=== PATIENT | male | born 1940 | race Native Hawaiian/Other Pacific Islander ===

== ENCOUNTER → 2016-08-09 | Outpatient (CLI) | payer MEDICARE | LOC: GMAL 15:04 | PROVIDERS: ATTEND Family Medicine | DX: R53.81 Other malaise (principal) ==

== ENCOUNTER → 2017-01-04 | Outpatient (CLI) | payer MEDICARE ==
--- NOTE | 2017-01-04 10:11 | US ---
EXAM DESCRIPTION: Aorta CLINICAL HISTORY: 76 years Male, AAA COMPARISON: None. FINDINGS: Aortic sonography demonstrates proximal aorta to be 2.0 cm in diameter with a transverse measurement is much is 3 cm. The mid abdominal aorta measures 3.3 cm in AP diameter and 4.1 cm in transverse diameter. The distal abdominal aorta tapers to 3.4 x 3.7 cm in diameter. Each iliac artery is 12 mm in diameter. IMPRESSION: Infrarenal aortic aneurysm with a maximal transverse diameter in the mid aorta 4.1 cm. 12 month sonographic follow-up for reevaluation and comparison to current measurements is recommended. Electronically signed by: Jhonny Miles MD 01/04/2017 10:10 AM CDT
== END | disposition home or self-care (01) ==
LOC: US 08:24
PROVIDERS: ATTEND Family Medicine
DX: I71.4 Abdominal aortic aneurysm, without rupture (principal)

== ENCOUNTER → 2017-01-28 | Outpatient (CLI) | payer MEDICARE | LOC: GMAL 11:39 | PROVIDERS: ATTEND Family Medicine | DX: D51.3 Other dietary vitamin B12 deficiency anemia (principal); R53.81 Other malaise; E55.9 Vitamin D deficiency, unspecified; Z12.5 Encounter for screening for malignant neoplasm of prostate; Z79.899 Other long term (current) drug therapy | CPT/HCPCS: 82306; 82607; 84439; 84443; G0103 ==

== ENCOUNTER → 2017-05-05 | Outpatient (CLI) | payer MEDICARE | END | disposition home or self-care (01) | LOC: GMAL 10:40 | PROVIDERS: ATTEND Family Medicine | DX: D51.3 Other dietary vitamin B12 deficiency anemia (principal); E55.9 Vitamin D deficiency, unspecified ==

== ENCOUNTER → 2017-05-10 | Outpatient (CLI) | payer MEDICARE ==
--- NOTE | 2017-05-10 18:30 | MRI ---
EXAM DESCRIPTION: Brain w/oContrast CLINICAL HISTORY: 76 years, Male, TRANSIENT CEREBRAL ISCHEMIC ATTACK COMPARISON: July 13, 2016 FINDINGS: Standard triplanar sequences. Diffusion weighted sequence does not show acute infarct. Gradient sequence does not show hemorrhage. Stable appearance of ventricles and sulci. Likely ischemic changes periventricular white matter. Old infarct and encephalomalacia in the left frontal region ,Stable. Left internal carotid flow void again not seen in the siphon region. Ethmoid sinus mucosal thickening. IMPRESSION: No acute infarct hemorrhage or mass. Study is very similar to June 2016. Atrophy and microischemic changes. Old infarct left frontal region mid convexity again noted. Flow-void again noted to be absent in the left internal carotid artery siphon. Mild ethmoid sinus mucosal thickening. Electronically signed by: Ney Cedeño MD 05/10/2017 6:29 PM CDT
--- NOTE | 2017-05-11 13:17 | US ---
EXAM DESCRIPTION: Carotid Duplex CLINICAL HISTORY: DIZZINESS AND GIDDINESS COMPARISON: July 13, 2016 and May 10, 2017 TECHNIQUE: Carotid Doppler ultrasound FINDINGS: Carotid Doppler demonstrates an occluded left ICA which is in keeping with the results of the brain MRI from 2015 and the more recent one from May 10. Intimal thickening and areas of scattered mixed plaque are also present on the right. Analysis of duplex waveforms and flow velocities indicates no Doppler finding of hemodynamically significant stenosis. Visual measurement of stenosis in the right mid CCA is 47% and the right proximal ICA 26%. Vertebrals are patent with antegrade flow. IMPRESSION: 1. Occluded left ICA 2. Atherosclerosis on the right but no hemodynamically significant stenosis. Electronically signed by: Broderick Quezada MD 05/11/2017 1:16 PM CDT
== END | disposition home or self-care (01) ==
LOC: MRI 15:49
PROVIDERS: ATTEND Family Medicine
DX: G45.9 Transient cerebral ischemic attack, unspecified (principal); R42 Dizziness and giddiness

== ENCOUNTER 2017-05-11 12:38 | Observation (INO) | payer MEDICARE ==
--- NOTE | 2017-05-11 12:51 | ED.PDOC ---
History of Present Illness - General Chief Complaint: Neuro Symptoms/Deficits Stated Complaint: confusion,speech difficulty Time Seen by Provider: 05/11/17 12:48 Source: family - Exam Limitations: no limitations - History of Present Illness Initial Comments: Earlene Dave 76 y/o male brought by with slurred speech lasting for about 15 minutes today while he was in his yard noted it no weakness but had also 2 episodes of dysarthria and 3 days ago was driving had gotten aphasic could not tell what is going on with speech difficulty lasting for about an hour but able to regain back his speech and memory.Went to see his md yesterday and outpatient MRI-brain w/o contrast-did not show acute infarct but with old infarct left frontal region. Also had total occlusion of left ICA on Carotid Doppler done yesterday vertebral artery patent. Timing/Duration: other - see hpi Severity: moderate Episode Description: see hpi Improving Factors: nothing Worsening Factors: nothing Associated Symptoms: other - see hpi Allergies/Adverse Reactions: Allergies Calcium Channel Blockers Allergy (Verified 05/11/17 12:57) Clonidine Allergy (Verified 05/11/17 12:57) Home Medications: Ambulatory Orders Aspirin [(None)] 325 mg PO QD 05/11/17 Carvedilol 6.25 mg PO BID 05/11/17 Escitalopram [Lexapro] 10 mg PO DAILY 05/11/17 Glipizide 5 mg PO BID 05/11/17 Hydrochlorothiazide 12.5 mg PO DAILY 05/11/17 Insulin Detemir [Levemir] 12 units SUBCU DAILY 05/11/17 Losartan Potassium 100 mg PO DAILY 05/11/17 Melatonin 3 mg PO BEDTIME PRN 05/11/17 Montelukast [Singulair] 10 mg PO BEDTIME 05/11/17 Terazosin HCl 2 mg PO BEDTIME 05/11/17 Review of Systems - Review of Systems Constitutional: States: no symptoms reported EENTM: States: no symptoms reported Respiratory: States: no symptoms reported Cardiology: States: no symptoms reported Gastrointestinal/Abdominal: States: no symptoms reported Genitourinary: States: no symptoms reported Musculoskeletal: States: no symptoms reported Skin: States: no symptoms reported Neurological: States: see HPI Endocrine: States: no symptoms reported Past Medical History (General) - Patient Medical History Hx Hypertension: Yes Hx Diabetes: Yes Hx Other - free text: infrarenal aortic aneurysm-4.1 cm dm. Surgical History: coronary bypass surgery, other - aortic valve replacement( pig valve),wrist right,nose,cardiac cath - Social History Hx Tobacco Use: Yes - quit 6 years ago - Activities of Daily Living Patient Lives Alone: No - ;retired previous job [employer] Grooming Ability: Independent Eating (Feeding) Ability: Independent Toileting Ability: Independent Family Medical History - Family History Father Family History: Unknown Living Status: Hx Family Hypertension: Yes - mom/brother Hx Cardiac Disease: Yes - mom/ brother Hx Family Diabetes: Yes - mom/brother Progress - Progress Progress: 05/11/17 14:00 Vital Signs - 8 hr 05/11/17 12:48 Temperature 97.5 F L Pulse Rate [ 67 Left Brachial] Respiratory 20 Rate Blood Pressure 134/69 [Left Arm] O2 Sat by Pulse 96 Oximetry Laboratory Tests 05/11/17 13:15 WBC 6.9 RBC 3.97 L Hgb 13.2 L Hct 39.6 L MCV 99.7 H MCH 33.2 H MCHC 33.5 RDW 13.6 Plt Count 170 MPV 8.2 Absolute Neuts (auto) 4.70 Absolute Lymphs (auto) 1.00 Absolute Monos (auto) 1.00 H Absolute Eos (auto) 0.20 Absolute Basos (auto) 0.10 Neutrophils % 67.2 Lymphocytes % 14.7 L Monocytes % 13.8 H Eosinophils % 3.0 Basophils % 1.3 PT 11.5 INR 1.020 PTT (SP) 28.0 Sodium 136 Potassium 4.3 Chloride 103 Carbon Dioxide 24 Anion Gap 13.3 BUN 52 H Creatinine 2.72 H BUN/Creatinine Ratio 19.1 Random Glucose 134 H Serum Osmolality 288.0 Calcium 9.2 Magnesium 2.3 Total Bilirubin 1.1 H Direct Bilirubin 0.2 Indirect Bilirubin 0.9 H AST 18 ALT 16 Alkaline Phosphatase 35 L Creatine Kinase 161 CK-MB (CK-2) 2.8 Troponin I 0.07 H* Serum Total Protein 6.6 Albumin 4.0 05/11/17 14:22 BUN-31;CREATININE-1.80(05/05/2017) - EKG/XRAY/CT EKG: Ty, Sinus, nonspecific ST T wave Chg Comments: heart rate-57 Stroke Information - Onset of Symptoms Stroke Onset of Symptoms Date: 05/09/17 - Contraindications Antithrombotic Contraindication: Treatment not indicated Departure - Departure Clinical Impression: TIA involving left internal carotid artery, Diabetes 1.5, managed as type 2 Acute kidney failure, unspecified Qualifiers: Acute renal failure type: unspecified Qualified Code(s): N17.9 - Acute kidney failure, unspecified Time of Disposition: 17:57 Disposition: Admit Patient Departure Forms: Patient Portal Self Enrollment Referrals: Marky Cain III, MD [Primary Care Provider] - 1-2 Weeks Home Medications: Ambulatory Orders Aspirin [(None)] 325 mg PO QD 05/11/17 Carvedilol 6.25 mg PO BID 05/11/17 Escitalopram [Lexapro] 10 mg PO DAILY 05/11/17 Glipizide 5 mg PO BID 05/11/17 Hydrochlorothiazide 12.5 mg PO DAILY 05/11/17 Insulin Detemir [Levemir] 12 units SUBCU DAILY 05/11/17 Losartan Potassium 100 mg PO DAILY 05/11/17 Melatonin 3 mg PO BEDTIME PRN 05/11/17 Montelukast [Singulair] 10 mg PO BEDTIME 05/11/17 Terazosin HCl 2 mg PO BEDTIME 05/11/17 Decision To Admit - Decistion To Admit Decision to Admit Reason: Admit from ER Decision to Admit Date: 05/11/17 Decision to Admit Time: 17:58 - D/W Anastasiya Langford-MARISSA/Hospitalist
[2017-05-11] MEDS ORDERED: CLOPIDOGREL 75 MG TAB PO ONE (12:54)
[2017-05-11] MEDS ORDERED: SODIUM CHLORIDE 0.9% 1000ML 1,000 ML IVS ONE (13:18)
--- NOTE | 2017-05-11 13:23 | RAD ---
EXAM DESCRIPTION: Chest,1 View CLINICAL HISTORY: 76 years Male, ams COMPARISON: None. TECHNIQUE: AP portable chest. FINDINGS: Lungs are clear. No consolidation. Heart normal size. IMPRESSION: Normal. Electronically signed by: Broderick Quezada MD 05/11/2017 1:22 PM CDT
--- NOTE | 2017-05-11 16:07 | US ---
EXAM DESCRIPTION: Renal CLINICAL HISTORY: 76 years, Male, PEMA COMPARISON: None. FINDINGS: The right kidney measures 10.3 cm in length. There is no right-sided hydronephrosis or obstructing nephrolithiasis. There is no right renal cortical thinning or perinephric fluid. The left kidney measures 12.2cm in length. There is a 4 mm nonobstructing mid left renal calculus. No left-sided hydronephrosis. There is no left renal cortical thinning or perinephric fluid. The bladder is not visualized. The abdominal aorta and IVC are not well visualized on this exam. IMPRESSION: Tiny nonobstructing mid left renal calculus, otherwise unremarkable exam. Nonvisualization of the bladder. Electronically signed by: Carl Pate MD 05/11/2017 4:06 PM CDT Workstation: [id number]
[2017-05-11] MEDS ORDERED: SODIUM BICARBONATE VIAL 100 MEQ in SODIUM CHLORIDE 0.9% 1000ML 1,000 ML IVS PRN (16:48)
[2017-05-11] MEDS ORDERED: SODIUM CHLORIDE 0.9% 1000ML 1,000 ML ONE (16:51)
[2017-05-11] MEDS ORDERED: SODIUM BICARBONATE SYRINGE 50 MEQ/50 ML SYG IV ONE (16:51)
--- NOTE | 2017-05-11 18:18 | HP ---
SUPERVISING PHYSICIAN: Jhonny Lawton MD CHIEF COMPLAINT: Altered mental status. HISTORY OF PRESENT ILLNESS: This is a 76-year-old male patient who reports that over the weekend, he and his went to [facility], then they went to the [facility]. He became queasy and nauseated and had some abdominal pain. It subsided and then they went to look at house that was for sale. He was driving home and he missed the turn to his home. His asked him why he did not turn and he said that he did not know he was supposed to turn. He got home and his stated he was very disoriented, but within an hour or so, his symptoms subsided. He had no further nausea or vomiting. He did not have any weakness, no slurred speech. He went to see Dr. Cain on Tuesday morning. Dr. Cain told him to go to the Emergency Room if he had any further episodes. Dr. aCin ordered an MRI that was done yesterday. The MRI per radiologic interpretation showed no acute infarct, hemorrhage or mass. The study is comparable to June of 2016. Atrophy and micro-ischemic changes, old infarct , left frontal region, mid convexity again noted. Flow void again noted to be absent in the left internal carotid artery siphon and mild ethmoid sinus mucosal thickening. Dr. Cain also had a carotid artery ultrasound done and per radiologic interpretation, showed occluded left internal carotid artery and atherosclerosis on the right, but no hemodynamically significant stenosis. In the Emergency Room today, his white count was 6.9, hemoglobin 13.2, hematocrit 39.6. Electrolytes were basically within normal limits with the exception of his BUN was 52 and creatinine was 2.72. The patient said he had had an elevated creatinine in 2016 when he had a coronary artery bypass graft done in [place] and he actually had a cerebrovascular accident at that time also. Today, prior to his admission to the Emergency Room, he had another episode while he was in the car with his and he was asked questions by his and he could not answer those questions. His stated, "You weren't yourself." He came to the Emergency Room for a workup. His initial troponin was slightly elevated 0.07, but then came down to 0.06. Total bilirubin was 1.1 , indirect bilirubin was 0.9. Alkaline phosphatase was 35. Renal ultrasound down in the Emergency Room and per radiologic interpretation showed a tiny nonobstructing mid left renal calculus, otherwise unremarkable exam. He had a chest x-ray per radiologic interpretation showing a normal chest x-ray. He had no complaints of weakness on either side. There was no slurring of speech or dizziness. The patient will be admitted for observation. PAST MEDICAL HISTORY: 1. Abdominal aortic aneurysm. 2. Coronary artery disease. 3. Chronic bronchitis. 4. Diabetes mellitus, type 2. 5. Essential hypertension. 6. Chronic low back pain. 7. Memory loss. 8. Hyperlipidemia. 9. Allergic rhinitis. 10. Congestive heart failure of unknown etiology. 11. Cerebrovascular accident in 2016 asparaginase transient ischemic attacks in 1995 as well as several other times. PAST SURGICAL HISTORY: 1. Septoplasty. 2. Coronary stents, two in 2000 and two in 2003. 3. One vessel coronary artery bypass graft with an AV replacement in July of 2015. OUTPATIENT MEDICATIONS: Per the EMR and awaiting verification. ALLERGIES: CALCIUM CHANNEL BLOCKERS, CLONIDINE. SOCIAL HISTORY: He is retired. he previous worked at [employer] and for [employer]. He is . He has a 50+ back year smoking history, but he quit in 2009. He drinks alcohol on a social basis and denies any illicit drug use. REVIEW OF SYSTEMS: GENERAL: Negative for fever, fatigue or weight changes. HEENT: Positive for seasonal allergies. Negative for sinus symptoms, ear pain, vision changes or sore throat. RESPIRATORY: Complains of a cough that has been ongoing since his coronary artery bypass graft and has thick, yellow sputum, but denies any shortness of breath or wheezing. CARDIAC: Negative for chest pain, palpitations or tachycardia. GASTROINTESTINAL: Negative for nausea, vomiting, diarrhea, constipation. MUSCULOSKELETAL: Denies acute back pain, myalgias or arthralgias. SKIN: Denies lesions or rashes. NEUROLOGIC: Negative for headache, dizziness or seizures. PHYSICAL EXAMINATION: VITAL SIGNS: Afebrile. Heart rate 61. Blood pressure 177/84. Respiratory rate 18. O2 saturation 93% on room air. GENERAL: This is a 76-year-old male patient who is lying in his hospital bed. He is in no acute distress. HEENT: Normocephalic, atraumatic. Pupils are equal and reactive. Oropharynx is clear. NECK: Supple without mass. No jugular venous distention. RESPIRATORY: Essentially clear to auscultation bilaterally. CARDIOVASCULAR: Regular rate and rhythm. ABDOMEN: Soft, nondistended, nontender. Bowel sounds are positive. EXTREMITIES: No cyanosis, clubbing or edema. NEUROLOGIC: Awake, alert and oriented times three. His tongue is midline. His mechanic's assistant are equal bilaterally. Strength in his lower legs is equal bilaterally. Cranial nerves II-XII are intact. LABORATORY: Labs and films are as per history of present illness. ASSESSMENT: 1. Altered mental status with a significant history of cerebrovascular accidents and transient ischemic attacks in the past and a recent MRI that shows no acute injury. 2. Acute on chronic renal failure with a creatinine of 2.7 with no baseline creatinine although the patient states he had a 1.89 creatinine in the past which he had his coronary artery bypass graft. 3. Diabetes mellitus, type 2. 4. Hypertension. 5. History of abdominal aortic aneurysm of unknown size. 6. Coronary artery disease. 7. Chronic low back pain. 8. Congestive heart failure of unknown etiology, presently on HCTZ, a beta luisa and an angiotensin receptor luisa. 9. History of chronic cough with thick yellow sputum. PLAN: We will place the patient in observation. I will hold his HCTZ and his angiotensin receptor luisa for right now. We will may need to adjust his beta luisa dosage up. He is presently on D5W with 1.5 amps of bicarb at 50 mL an hour. I have also placed him on sliding scale insulin with a.c. and h.s. Accuchecks. I restarted his home medications with the exception of his HCTZ and his angiotensin receptor luisa. Because of his chronic cough, I will do a sputum culture. He received a dose of Plavix in the Emergency Room and I will continue that. He also is on aspirin at home, so we will also continue that. It may be advisable that he have a neurologic consult after discharge and a close followup with Dr. Cain. We will do q.4h. neuro checks. We will continue to monitor the patient closely and follow as needed. Dr. Lawton is the collaborating physician and available for consultation. #[id number] [facility]
[2017-05-11] MEDS ORDERED: SODIUM CHLORIDE 0.9% (FLUSH) 10 ML SYG IV PRN (21:08)
[2017-05-11] MEDS ORDERED: LEVALBUTEROL NEBS 1.25 MG/3 ML VIAL INH PRN (21:10)
[2017-05-11] MEDS ORDERED: SODIUM BICARBONATE SYRINGE 75 MEQ in DEXTROSE 5% 1000ML 1,000 ML IV PRN (21:10)
[2017-05-11] MEDS ORDERED: BENZOCAINE-MENTH LOZ (CEPACOL) 1 EA LOZ MT PRN (21:14)
[2017-05-11] MEDS ORDERED: MELATONIN 3 MG TAB PO PRN (21:16)
[2017-05-11] MEDS ORDERED: DEXTROSE 50% 25 GM/50 ML SYG IV PRN (21:17)
[2017-05-11] MEDS ORDERED: GLUCAGON INJ 1 MG VIAL SUBCU PRN (21:17)
[2017-05-11] MEDS ORDERED: IV SET AND CAP CHANGE INJ INJ SCH (21:30)
[2017-05-11] MEDS: IPRATROPIUM/ALBUTEROL 3 ML VIAL INH SCH (21:30)
[2017-05-11] MEDS ORDERED: PANTOPRAZOLE SODIUM IV 40 MG VIAL IV SCH (21:30)
[2017-05-11] MEDS ORDERED: NON-FORMULARY MEDICATION 1 EA MIS (Carvedilol [Carvedilol] 6.25 MG) PO SCH (21:30)
[2017-05-11] MEDS ORDERED: CARVEDILOL 3.125 MG TAB ONE (21:41)
[2017-05-11] MEDS: ASPIRIN TABLET 325 MG TAB PO SCH (21:43)
[2017-05-11] MEDS: guaiFENesin ER TAB 600 MG TAB PO SCH (21:46)
[2017-05-12] MEDS ORDERED: DEXTROSE 5% 1000ML 1,000 ML IVS ONE (01:49)
[2017-05-12] MEDS ORDERED: SODIUM BICARBONATE SYRINGE 50 MEQ/50 ML SYG IV ONE (01:49)
[2017-05-12] MEDS ORDERED: CARVEDILOL 3.125 MG TAB ONE (08:11)
[2017-05-12] MEDS: INSULIN LISPRO 100 UNITS/ML PEN SUBCU SCH ×2 (08:17→12:01)
[2017-05-12] MEDS: guaiFENesin ER TAB 600 MG TAB PO SCH (08:18)
[2017-05-12] MEDS: ASPIRIN TABLET 325 MG TAB PO SCH (08:19)
[2017-05-12] MEDS: IPRATROPIUM/ALBUTEROL 3 ML VIAL INH SCH ×2 (08:58→12:32)
[2017-05-12] MEDS ORDERED: INSULIN DETEMIR 100 UNITS/ML PEN SUBCU SCH (09:00)
[2017-05-12] MEDS ORDERED: ESCITALOPRAM 10 MG TAB PO SCH (09:00)
[2017-05-12] MEDS ORDERED: ASPIRIN TABLET 325 MG TAB PO SCH (09:00)
[2017-05-12] MEDS ORDERED: CLOPIDOGREL 75 MG TAB PO SCH (09:00)
[2017-05-12] MEDS ORDERED: CARVEDILOL 3.125 MG TAB PO SCH (09:00)
[2017-05-12] MEDS ORDERED: glipiZIDE 5 MG TAB PO SCH ×2 (09:00→17:00)
[2017-05-12] MEDS ORDERED: PANTOPRAZOLE SODIUM TAB 40 MG PO SCH (11:30)
[2017-05-12] MEDS ORDERED: CARVEDILOL 3.125 MG TAB PO ONE (12:00)
[2017-05-12 15:45] VITALS: BP 127/77; TEMP 98.4; O2SAT 94
[2017-05-12] MEDS ORDERED: CARVEDILOL 12.5 MG TAB PO SCH (21:00)
[2017-05-12] MEDS ORDERED: ATORVASTATIN 20 MG TAB PO SCH (21:00)
[2017-05-12] MEDS ORDERED: TERAZOSIN 1 MG CAP PO SCH (21:00)
--- NOTE | 2017-05-12 21:22 | DS ---
SUPERVISING PHYSICIAN: Jhonny Lawton M.D. DISCHARGE DIAGNOSIS: 1. Altered mental status with significant history of cerebrovascular accidents and transient ischemic attacks in the past and a recent MRI that shows no acute injury. 2. Acute on chronic renal failure with creatinine 2.7 that has improved to 2.0 today with a baseline creatinine of 1.8. 3. Diabetes mellitus type 2. 4. Hypertension. 5. History of abdominal aortic aneurysm of unknown size. 6. Coronary artery disease. 7. Chronic low back pain. 8. Congestive heart failure of unknown etiology previous on HCTZ, beta luisa and an ARB. His ARB and HCTZ have been discontinued due to his renal function. 9. History of chronic cough with thick yellow sputum. HISTORY OF PRESENT ILLNESS: This is a 76-year-old male patient who reports that over the weekend, he and his went to [facility], then they went to the [facility] downw. He became queasy and nauseated and had some abdominal pain. It subsided and then they went to look at house that was for sale. He was driving home and he missed the turn to his home. His asked him why he did not turn and he said that he did not know he was supposed to turn. He got home and his stated he was very disoriented, but within an hour or so, his symptoms subsided. He had no further nausea or vomiting. He did not have any weakness, no slurred speech. He went to see Dr. Cain on Tuesday morning. Dr. Cain told him to go to the Emergency Room if he had any further episodes. Dr. Cain ordered an MRI that was done yesterday. The MRI per radiologic interpretation showed no acute infarct, hemorrhage or mass. The study is comparable to June of 2016. Atrophy and micro-ischemic changes, old infarct , left frontal region, mid convexity again noted. Flow void again noted to be absent in the left internal carotid artery siphon and mild ethmoid sinus mucosal thickening. Dr. Cain also had a carotid artery ultrasound done and per radiologic interpretation, showed occluded left internal carotid artery and atherosclerosis on the right, but no hemodynamically significant stenosis. In the Emergency Room today, his white count was 6.9, hemoglobin 13.2, hematocrit 39.6. Electrolytes were basically within normal limits with the exception of his BUN was 52 and creatinine was 2.72. The patient said he had had an elevated creatinine in 2016 when he had a coronary artery bypass graft done in [place] and he actually had a cerebrovascular accident at that time also. Today, prior to his admission to the Emergency Room, he had another episode while he was in the car with his and he was asked questions by his and he could not answer those questions. His stated, "You weren't yourself." He came to the Emergency Room for a workup. His initial troponin was slightly elevated 0.07, but then came down to 0.06. Total bilirubin was 1.1 , indirect bilirubin was 0.9. Alkaline phosphatase was 35. Renal ultrasound down in the Emergency Room and per radiologic interpretation showed a tiny nonobstructing mid left renal calculus, otherwise unremarkable exam. He had a chest x-ray per radiologic interpretation showing a normal chest x-ray. He had no complaints of weakness on either side. There was no slurring of speech or dizziness. The patient will be admitted for observation. HOSPITAL COURSE: Overnight the patient had no mental status changes or any weakness. He complained of no disorientation. Physical Therapy walked him up and down the hallways and he ambulated without any problems. His lab studies this morning has a stable CBC. His potassium was slightly low at 3.3 this morning and his creatinine dropped from 2.72 to 2.01 today. BUN was 39. Troponin was slightly elevated again at 0.07. He has had no complaints of chest pain or shortness of breath. He was given Plavix as well as started on a statin. I spoke with Dr. Guajardo, machine feeder and Dr. Hough, neurologist, and they agreed with present plan of care. He will be discharged home in stable condition. DISCHARGE PLAN: The patient will be discharged home in stable condition. He is to resume his previous diet and activity. He is to return to the hospital for any problems or stroke-like symptoms. Dr. Guajardo, machine feeder, agreed that he should be taken off of his ARB and his HCTZ and will see him as a patient on 05/25 at [facility]. I spoke with Dr. Hough's office and he will see him for an EEG and followup appointment within the next several weeks. Dr. Hough suggested that the patient have an MRA of the brain and that will be scheduled for tomorrow at 1:00 here at [facility]. He has a followup appointment with Dr. Cain tomorrow at 10:30 AM. The patient has been advised to return to the hospital for any further symptoms or problems, or to call Dr. Cain' office. DISCHARGE MEDICATIONS: 1. Levemir. 2. Glipizide. 3. Aspirin. 4. Terazosin. 5. Lexapro. 6. Melatonin. 7. Lipitor. 8. Coreg. 9. Plavix. Dr. Lawton is the collaborating physician available for consultation. #[id number] [facility]
[2017-05-13] MEDS ORDERED: ASPIRIN TABLET 325 MG TAB PO SCH (09:00)
== END 2017-05-12 15:46 | disposition home or self-care (01) ==
LOC: ER 12:38 → MS 18:16
PROVIDERS: ADMIT Nurse Practitioner Acute Care; ATTEND Nurse Practitioner Acute Care
DX: R41.82 Altered mental status, unspecified (principal); N17.9 Acute kidney failure, unspecified; I13.0 Hypertensive heart and chronic kidney disease with heart failure and stage 1 through stage 4 chronic kidney disease, or unspecified chronic kidney disease; N18.9 Chronic kidney disease, unspecified; I50.9 Heart failure, unspecified; E11.22 Type 2 diabetes mellitus with diabetic chronic kidney disease; I71.4 Abdominal aortic aneurysm, without rupture; I25.10 Atherosclerotic heart disease of native coronary artery without angina pectoris; G89.29 Other chronic pain; M54.5 Low back pain; R05 Cough; E78.5 Hyperlipidemia, unspecified; N20.0 Calculus of kidney; Z86.73 Personal history of transient ischemic attack (TIA), and cerebral infarction without residual deficits; Z79.4 Long term (current) use of insulin; Z79.82 Long term (current) use of aspirin; Z79.899 Other long term (current) drug therapy; Z88.8 Allergy status to other drugs, medicaments and biological substances; Z95.1 Presence of aortocoronary bypass graft; Z95.5 Presence of coronary angioplasty implant and graft; Z87.891 Personal history of nicotine dependence
CPT/HCPCS: 36415 ×3; 36416 ×2; 71010; 76775; 80048; 80053; 80076; 82550; 82553; 82948 ×2; 83735; 84484 ×3; 85025 ×2; 85610; 85730; 93005; 94640 ×3; 94760 ×4; 96361; 96372; 96374; 97116; 97162; 99284; G0378; G8978; G8979; G8980; J1815 ×2; J7030 ×2; J7060; J7620 ×3

== ENCOUNTER → 2017-05-13 | Outpatient (CLI) | payer MEDICARE ==
--- NOTE | 2017-05-14 02:49 | MRI ---
EXAM DATE: 05/13/2017 12:00 AM CDT. PROCEDURE: MR BRAIN ANGIOGRAPHY WITHOUT IV CONTRAST. INDICATION: TIA. COMPARISON: MRI of the brain 05/10/2017. TECHNIQUE: [id number] angiographic images are obtained of the major intracranial vessels. FINDINGS: The right internal carotid artery demonstrates no significant stenosis. There is mild irregularity within the cavernous right ICA suggestive of atherosclerotic plaque. The right MCA and ISAAK demonstrates no stenosis, occlusion, or aneurysm. The left internal carotid artery from the skull base to the terminus demonstrates lack of flow related enhancement. There is reconstitution of flow related enhancement at the terminus likely secondary to collateral flow from the anterior and posterior communicating arteries. The left P-comm is widely patent. The left MCA is unremarkable. There is questionable focal stenosis of the proximal A1 segment left ISAAK. The visualized vertebral arteries, basilar artery, and rate manager demonstrate no stenosis, occlusion, or aneurysm. The right P-comm is patent as well. 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 Reconstitution at the terminus likely secondary to collateral flow from the anterior and posterior communicating arteries. Questionable focal stenosis of the A1 segment left ISAAK. The remainder of the major intracranial vessels demonstrate no significant stenosis. Electronically signed by: Teofilo Zavala MD 05/14/2017 2:47 AM CDT
--- NOTE | 2017-05-16 11:09 | US ---
EXAM DESCRIPTION: Renal Arteries CLINICAL HISTORY: 76 years Male, CHRONIC KIDNEY DISEASE COMPARISON: None. FINDINGS: Peak systolic velocities in the abdominal aorta 132 cm/s. Peak systolic velocity in the proximal right renal artery not obtained, mid right renal artery 74 cm/s, distally in the right renal artery 102 cm/s. Right renal aortic ratio 0.8, resistive indices 0.77-0.86. Peak systolic velocity in the proximal left renal artery 115 cm/s, mid left renal artery 82 cm/s, distal left renal artery 204 cm/s. Left renal aortic ratio 1.5, resistive indices 0.76-0.84. Normal waveforms in both renal arteries without parvus et tardus waveform. IMPRESSION: Increased peak systolic velocity in the distal left renal artery suggestive of stenosis at the distal left renal artery without abnormal renal aortic ratio. Bilaterally symmetric but slightly elevated resistive indices in both renal arteries which can also be seen with renal artery stenosis. CTA or MRA could be performed for further evaluation. Electronically signed by: Carl Pate MD 05/16/2017 11:07 AM CDT
== END | disposition home or self-care (01) ==
LOC: MRI 13:18
PROVIDERS: ATTEND Family Medicine
DX: G45.9 Transient cerebral ischemic attack, unspecified (principal); N18.3 Chronic kidney disease, stage 3 (moderate)

== ENCOUNTER → 2017-06-01 | Outpatient (CLI) | payer MEDICARE | END | disposition home or self-care (01) | LOC: LAB.O 09:21 | PROVIDERS: ATTEND Internal Medicine Nephrology | DX: N18.4 Chronic kidney disease, stage 4 (severe) (principal); Z13.9 Encounter for screening, unspecified ==

== ENCOUNTER → 2017-08-23 | Outpatient (CLI) | payer MEDICARE | LOC: LAB.O 11:51 | PROVIDERS: ATTEND Psychiatry & Neurology Neurology | DX: M45.0 Ankylosing spondylitis of multiple sites in spine (principal); F90.9 Attention-deficit hyperactivity disorder, unspecified type; M33.90 Dermatopolymyositis, unspecified, organ involvement unspecified; M79.A9 Nontraumatic compartment syndrome of other sites; G60.3 Idiopathic progressive neuropathy; M35.1 Other overlap syndromes; G35 Multiple sclerosis; Z79.1 Long term (current) use of non-steroidal anti-inflammatories (NSAID); G70.00 Myasthenia gravis without (acute) exacerbation; G04.89 Other myelitis; M54.81 Occipital neuralgia; H46.9 Unspecified optic neuritis; M35.3 Polymyalgia rheumatica; M33.22 Polymyositis with myopathy; G61.81 Chronic inflammatory demyelinating polyneuritis; M54.13 Radiculopathy, cervicothoracic region; M54.16 Radiculopathy, lumbar region; I73.00 Raynaud's syndrome without gangrene; G25.89 Other specified extrapyramidal and movement disorders; M06.9 Rheumatoid arthritis, unspecified; D86.9 Sarcoidosis, unspecified; M35.00 Sjogren syndrome, unspecified; M32.10 Systemic lupus erythematosus, organ or system involvement unspecified; M31.6 Other giant cell arteritis; I77.9 Disorder of arteries and arterioles, unspecified ==

== ENCOUNTER 2017-10-26 18:21 | Emergency (ER) | payer MEDICARE ==
--- NOTE | 2017-10-26 18:50 | ED.PDOC ---
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 HE STARTED SHOWING LEFT FACIAL DROOP LEFT ARM WEAKNESS SLURRED SPEECH THAT LASTED 20 MIN NOW IT IS MUCH IMPROVED HIS SPEECH IS BETTER NEAR NORMAL HIS FACIAL DROOP ON THE LEFT SIDE IS LESS PRONOUNCED HE HAS SIGNIFICANT PAST MEDICAL HISTORY 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 HE ALSO HAS HISTORY OF CAD HTN TYPE II DM HE RECENTLY MOVED FROM [place] HE IS ON ASPIRIN 325 MG PO Q DAY AND PLAVIX 75 MG PO Q DAY BOTH OF WHICH HE TOOK THIS MORNING - History of Present Illness Timing/Duration: 1/2 hour Severity: moderate Improving Factors: nothing Worsening Factors: nothing Associated Symptoms: denies symptoms Allergies/Adverse Reactions: Allergies Calcium Channel Blockers Allergy (Verified 05/11/17 12:57) Clonidine Allergy (Verified 05/11/17 12:57) Home Medications: Ambulatory Orders Aspirin 325 mg PO QD 05/11/17 Escitalopram [Lexapro] 10 mg PO DAILY 05/11/17 Glipizide 5 mg PO BID 05/11/17 Insulin Detemir [Levemir Pen] 12 units SUBCU DAILY 05/11/17 Melatonin 3 mg PO BEDTIME PRN 05/11/17 Terazosin HCl 2 mg PO BEDTIME 05/11/17 Atorvastatin Calcium [Lipitor] 80 mg PO BEDTIME #30 tab 05/12/17 Carvedilol [Coreg] 12.5 mg PO BID #60 tab 05/12/17 Clopidogrel Bisulfate [Plavix] 75 mg PO DAILY #30 tab 05/12/17 Review of Systems - Review of Systems Constitutional: States: no symptoms reported EENTM: States: no symptoms reported Respiratory: States: no symptoms reported Cardiology: States: no symptoms reported Gastrointestinal/Abdominal: States: no symptoms reported Genitourinary: States: no symptoms reported Musculoskeletal: States: no symptoms reported Skin: States: no symptoms reported Neurological: States: see HPI Endocrine: States: no symptoms reported Hematologic/Lymphatic: States: no symptoms reported Past Medical History (General) - Patient Medical History Hx Seizures: No Hx Stroke: Yes Hx Asthma: No Hx of COPD: No Hx Cardiac Disorders: Yes - [place] X3 Hx Congestive Heart Failure: Yes Hx Pacemaker: No Hx Hypertension: Yes Hx Diabetes: Yes Hx MRSA: No - Vaccination History Hx Influenza Vaccination: Yes - 05/10/17 Hx Pneumococcal Vaccination: Yes - Social History Hx Tobacco Use: Yes - quit 6 years ago Hx Alcohol Use: No Hx Substance Use: No Hx Physical Abuse: No Family Medical History - Family History Father Family History: Unknown Living Status: Hx Family Hypertension: Yes - mom/brother Hx Cardiac Disease: Yes - mom/ brother Hx Family Diabetes: Yes - mom/brother Physical Exam - Physical Exam General Appearance: Alert, Comfortable Eye Exam: bilateral normal ENT Exam: normal ENT inspection, hearing grossly normal, TMs normal, pharynx normal, nasal congestion Neck: non-tender Respiratory: chest non-tender, lungs clear, normal breath sounds, no respiratory distress, no accessory muscle use Cardiovascular/Chest: normal peripheral pulses, regular rate, rhythm, no edema, no gallop, no JVD Extremities Exam: non-tender, normal range of motion, no edema Mental Status: alert, oriented x 3, lethargic grain farmer Exam: normal hearing, normal speech, PERRL, facial asymmetry, facial droop Motor/Sensory: weak motor strength LUE, weak motor strength LLE Skin Exam: normal color, warm/dry Progress - Results/Orders Results/Orders: Laboratory Tests 10/26/17 10/26/17 10/26/17 18:50 18:50 18:50 WBC 8.1 RBC 3.90 L Hgb 13.0 L Hct 38.7 L MCV 99.4 H MCH 33.3 H MCHC 33.5 RDW 13.8 Plt Count 188 MPV 9.1 Absolute Neuts (auto) 5.20 Absolute Lymphs (auto) 1.30 Absolute Monos (auto) 1.00 H Absolute Eos (auto) 0.50 H Absolute Basos (auto) 0.10 Neutrophils % 64.3 Lymphocytes % 16.6 L Monocytes % 12.2 H Eosinophils % 5.7 H Basophils % 1.2 PT 11.6 INR 1.000 PTT (SP) 27.2 Sodium 141 Potassium 4.3 Chloride 110 Carbon Dioxide 23 Anion Gap 12.3 BUN 34 H Creatinine 2.22 H BUN/Creatinine Ratio 15.3 Random Glucose 111 H Serum Osmolality 289.6 Calcium 9.0 Total Bilirubin 0.5 AST 17 ALT 16 Alkaline Phosphatase 38 L Serum Total Protein 6.4 Albumin 3.7 Globulin 2.7 Albumin/Globulin Ratio 1.4 7.20 REASSESSMENT PT CONDITION HAS IMPROVED HIS SPEECH IN NOT SLURRED HE HAS SUBTLE LEFT SIDED FACIAL ASYMMETRY LEFT 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 Copy, Patient Portal Self Enrollment Referrals: Marky Cain III, MD [Primary Care Provider] - 1-2 Weeks Home Medications: Ambulatory Orders Aspirin 325 mg PO QD 05/11/17 Escitalopram [Lexapro] 10 mg PO DAILY 05/11/17 Glipizide 5 mg PO BID 05/11/17 Insulin Detemir [Levemir Pen] 12 units SUBCU DAILY 05/11/17 Melatonin 3 mg PO BEDTIME PRN 05/11/17 Terazosin HCl 2 mg PO BEDTIME 05/11/17 Atorvastatin Calcium [Lipitor] 80 mg PO BEDTIME #30 tab 05/12/17 Carvedilol [Coreg] 12.5 mg PO BID #60 tab 05/12/17 Clopidogrel Bisulfate [Plavix] 75 mg PO DAILY #30 tab 05/12/17 Transfer to Outside Facility - Transfer Information Accepting Facility: [facility] Reason for Transfer: specialized care not available
--- NOTE | 2017-10-26 19:13 | CT ---
PROCEDURE: Head HISTORY: left side facial drooping and weakness Indication: Same as above Comparison: 05/10/2017 Technique: CT of the head was done without intravenous contrast was done in the orthogonal planes. This exam was performed according to our departmental dose-optimization program, which includes automated exposure control, adjustment of the mA and/or KV according to the patient's size and/or use of iterative reconstruction technique. FINDINGS: There is no intracranial hemorrhage, midline shift mass effect or acute focal infarct. 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 There is prominence of the sylvian fissures and the cortical sulci reflecting age related volume loss. There is periventricular and deep white matter low attenuation, most likely related to small vessel white matter ischemic disease. Intracranial vascular calcifications are seen. If clinical concern exists regarding an acute ischemic/vascular pathology being responsible for patient's symptomatology, an MRI of the brain is more sensitive than the current study, in ruling out such a possibility. There is good rogers/white matter differentiation. The ventricular system is normal. The mastoid air cells are unremarkable . The paranasal sinuses are unremarkable . There is no visualization of acute fractures involving the calvarium or the skull base. IMPRESSION: There is no acute intracranial abnormality. 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 Age related and chronic involutional changes are seen. Electronically signed by: Nicolas Pettit MD 10/26/2017 7:12 PM CDT Workstation: [id number]
[2017-10-26] MEDS ORDERED: LABETALOL INJ 5 MG/ML VIAL IV ONE (20:24)
[2017-10-26 20:29] VITALS: TEMP 97.9
[2017-10-26 21:01] VITALS: BP 178/80; O2SAT 94
== END 2017-10-26 21:01 | disposition short-term general hospital (02) ==
LOC: ER 18:21
DX: G45.9 Transient cerebral ischemic attack, unspecified (principal); I25.2 Old myocardial infarction; I25.10 Atherosclerotic heart disease of native coronary artery without angina pectoris; I11.0 Hypertensive heart disease with heart failure; I50.9 Heart failure, unspecified; Z86.73 Personal history of transient ischemic attack (TIA), and cerebral infarction without residual deficits; Z79.82 Long term (current) use of aspirin; Z79.02 Long term (current) use of antithrombotics/antiplatelets; Z79.4 Long term (current) use of insulin; Z87.891 Personal history of nicotine dependence